=== PATIENT | female | born 1970 | race Two or more races ===

== ENCOUNTER 2019-12-04 15:24 | Inpatient (IN) | payer OTHER ==
[~2019-12-04] VITALS: Ht 160 cm; Wt 100.8 kg
[2019-12-04] MEDS ORDERED: MORPHINE SULFATE 4 MG/ML SYR/VIAL IV ONE (15:45)
[2019-12-04] MEDS ORDERED: ONDANSETRON HCL 4 MG/2 ML VIAL IV ONE (15:45)
[2019-12-04 15:57] LABS: Basophils # (auto) 0 10 ^3/uL (0-0.2); Eosinophils # (auto) 0.2 10 ^3/uL (0-0.8); Lymphocytes # (auto) 2.6 10 ^3/uL (0.4-5.4)
[2019-12-04 15:59] LABS: Basophils % (auto) 0.7 % (0.0-2.0); Eosinophils % (auto) 3.9 % (0.0-7.0); Hematocrit 44.1 % (36.0-46.0); Hemoglobin 14.3 g/dL (12.2-16.2); Lymphocytes % (auto) 40.7 % (10.0-50.0); Mean Corpuscular Hemoglobin 25.5 pg (28.0-32.0); Mean Corpuscular Hgb Conc. 32.4 g/dL (32.0-36.0); Mean Corpuscular Volume 78.8 fL (80.0-100.0); Monocytes # (auto) 0.4 10 ^3/uL (0-1.3); Monocytes % (auto) 6.8 % (0.0-12.0); Neutrophils % (auto) 47.9 % (37.0-80.0); Nucleated Red Blood Cells % 0.1 %; Platelet Count (auto) 119 10^3/uL (140-450); Red Cell Distribution Width 16.5 % (11.8-14.3); White Blood Cell 6.3 10^3/uL (4.4-10.8)
[2019-12-04 16:14] LABS: Albumin 3.7 g/dL (3.4-5.0); Calcium 8.9 mg/dL (8.5-10.1); Potassium 3.9 mmol/L (3.5-5.1)
[2019-12-04 16:18] LABS: BUN/Creatinine Ratio 15.1; Bilirubin, Total 0.4 mg/dL (0.2-1.0); Total Protein 8.3 g/dL (6.4-8.2)
[2019-12-04 16:24] LABS: INR 1.07 (0.9-1.15); Partial Thromboplastin Time 28.2 sec (23.64-32.05)
[2019-12-04 16:31] LABS: Urine WBC None Seen /hpf (0 - 5)
[2019-12-04 16:48] LABS: Urine Bacteria NONE SEEN /hpf (None Seen); Urine Blood Negative /uL (Negative); Urine Specific Gravity 1.002 (1.001-1.035)
[2019-12-04] MEDS: D5W/SOD CHL 0.45% 1,000 ML IV SCH (18:40)
--- NOTE | 2019-12-04 19:37 | NUR ---
MS admit from ER MAGDA DYER admitted to tele/MS . Patient is A&O X's 4 with no s/s of distress noted and patient c/o abdominal pain. Educated patient on pain medication/POC and to use call light when in need of assistance. Patient oriented to KAN MAK RN primary RN, unit, room, bed, and unit policies regarding patient care. All questions and concerns addressed, patient verbalized understanding. Guard present at bedside.
[2019-12-04 21:36] VITALS: BP 156/62
--- NOTE | 2019-12-04 21:53 | NUR ---
ROUNDS Patient is resting in bed at this time with no s/s of distress or discomfort. Guard present at bedside. Will continue care.
[2019-12-04 22:15] VITALS: BP 156/62
--- NOTE | 2019-12-05 | NUR ---
IV INSERTION IV access obtained, via clean sterile technique by inserting 22 gauge catheter at LEFT HAND.IV secured properly. No trauma to site. Patient tolerated well.
[2019-12-05] MEDS: MORPHINE SULFATE 4 MG/ML SYR/VIAL IV PRN ×4 (00:26→18:48)
[2019-12-05] MEDS: ONDANSETRON HCL 4 MG/2 ML VIAL IV PRN ×4 (00:26→18:48)
--- NOTE | 2019-12-05 01:00 | NUR ---
PAIN REASSESSMENT Patient states pain is still at a 7 right now but it is tolerable and pain increases with movement. Patient states no nausea at this time. Will continue care.
[2019-12-05] MEDS: D5W/SOD CHL 0.45% 1,000 ML IV SCH ×2 (05:05→09:18)
--- NOTE | 2019-12-05 05:12 | NUR ---
pain assessment Patient stating that she has abdominal pain rated at a 9. Patient states that she does not want any medication at this time, that she is going to try to hold off on it. Educated patient to use call light if she changes her mind. Patient verbalized understanding.
[2019-12-05 05:13] VITALS: BP 128/71
[2019-12-05 06:48] LABS: Basophils # (auto) 0 10 ^3/uL (0-0.2); Eosinophils # (auto) 0.2 10 ^3/uL (0-0.8); Lymphocytes % (auto) 42.9 % (10.0-50.0); Red Cell Distribution Width 15.8 % (11.8-14.3)
[2019-12-05 06:51] LABS: Basophils % (auto) 0.3 % (0.0-2.0); Eosinophils % (auto) 3.5 % (0.0-7.0); Hematocrit 41.8 % (36.0-46.0); Hemoglobin 13.7 g/dL (12.2-16.2); Lymphocytes # (auto) 2.8 10 ^3/uL (0.4-5.4); Mean Corpuscular Hemoglobin 25.7 pg (28.0-32.0); Mean Corpuscular Hgb Conc. 32.8 g/dL (32.0-36.0); Mean Corpuscular Volume 78.3 fL (80.0-100.0); Monocytes # (auto) 0.4 10 ^3/uL (0-1.3); Monocytes % (auto) 6.4 % (0.0-12.0); Neutrophils % (auto) 46.9 % (37.0-80.0); Nucleated Red Blood Cells % 0.3 %; Platelet Count (auto) 103 10^3/uL (140-450); Red Blood Cells 5.34 10^6/uL (4.0-5.20); White Blood Cell 6.5 10^3/uL (4.4-10.8)
--- NOTE | 2019-12-05 07:00 | NUR ---
Opening Shift Note Assumed care of patient, awake and alert. No S/S of distress/SOB. Patient complaining of RUQ pain. Instructed on POC and to call for assist PRN, will continue to monitor for changes Q1hr and PRN.
[2019-12-05 07:05] LABS: Albumin 3.3 g/dL (3.4-5.0); Calcium 8.3 mg/dL (8.5-10.1); Potassium 3.6 mmol/L (3.5-5.1)
[2019-12-05 07:08] LABS: BUN/Creatinine Ratio 16.2; Bilirubin, Total 0.7 mg/dL (0.2-1.0); Total Protein 7.6 g/dL (6.4-8.2)
[2019-12-05 09:00] VITALS: BP 149/85
[2019-12-05] MEDS: ENOXAPARIN SOD 40 MG/0.4 ML SYRINGE SC SCH (09:40)
[2019-12-05 12:40] VITALS: BP 145/75
[2019-12-05 17:00] VITALS: BP 130/60
--- NOTE | 2019-12-05 18:44 | NUR ---
IV removal IV DC'd with clean sterile technique, catheter fully intact. Pressure dressing applied to site. Patient tolerated well. NOTE:
--- NOTE | 2019-12-05 19:10 | NUR ---
Received report from the Day Shift RN Hazel Clark". Pt. resting and dozing in bed. Half awake and half asleep, easily arousable to name.
--- NOTE | 2019-12-05 20:00 | NUR ---
Pt. in bed resting, an inmate, alert, awake, oriented x 4. Pt. in Room Air, lungs are clear bilaterally. No s/s of sob or dyspnea. Breathing regular, even and unlabored. Pt. is medical-surgical pt. Pt. none Tele. Pt. denies pain @ this time. Pt. independent with ADL's and can follow commands. Ambulatory with [facility]. Voided clear yellow urine. Last BM today 12/05/19. Generally skin intact. Pt. is in bed resting and watching TV. Officer @ the bedside guarding the pt. Call-light within pt.'s reach.
[2019-12-05] MEDS: PANTOPRAZOLE 40 MG/10 ML VIAL INJ IV SCH (21:35)
--- NOTE | 2019-12-05 21:35 | NUR ---
Meds. as scheduled given/administered. Pt. provided explanation about the use and benefits of the scheduled IV Protonix. Pt. verbalized understanding.
[2019-12-05 21:44] VITALS: BP 124/75
--- NOTE | 2019-12-05 22:02 | NUR ---
Pt. Accucheck taken @ hs and result of BS = 130.
--- NOTE | 2019-12-05 23:30 | NUR ---
Pt. resting and sleeping. No s/s of sob. Breathing even and unlabored. Siderails up x2 @ the HOB and bed locked in lowest position. Keep room free from noise and dim-lighted. Officer @ the bedside. Door's closed.
[2019-12-06] MEDS: ONDANSETRON HCL 4 MG/2 ML VIAL IV PRN ×3 (01:31→21:05)
--- NOTE | 2019-12-06 01:31 | NUR ---
Zofran - Ondansetron 4mg.= 2 mls. IV given for pt. verbalized feeling of nausea @ this time.
[2019-12-06] MEDS: MORPHINE SULFATE 4 MG/ML SYR/VIAL IV PRN ×4 (01:33→21:05)
--- NOTE | 2019-12-06 01:33 | NUR ---
Pt. given Morphine Sulfate 4 mg. IV for severe pain 8/10 scale @ the Right Upper Quadrant pain (RUQ) sharp, hurting and stabbing as described by the pt. BP= 125/69 , HR = 68/min.
--- NOTE | 2019-12-06 02:03 | NUR ---
No s/s of pain or discomfort. No s/s of facial grimacing. No /s of anxiety and agitation. Pt. calm and looks comfortable. Pt. sleeping now. Kept warm and maintained pt. safety. Officer @ the bedside.
--- NOTE | 2019-12-06 04:00 | NUR ---
Pt.'s sleeping well. Siderails up x2, bed locked in a low position and call-light @ the bedside.
[2019-12-06 05:31] VITALS: BP 110/69
[2019-12-06 05:33] VITALS: BP 110/69
--- NOTE | 2019-12-06 07:40 | NUR ---
Patient sitting up in bed, eating breakfast. No acute distress noted. Female security at bedside.
--- NOTE | 2019-12-06 07:45 | NUR ---
Patient stated she's nauseous, her stomach pain level at 9/10 at this time. Zofran Inj given for nausea, Morphine Sulf Inj given for pain.
[2019-12-06 09:00] VITALS: BP 149/77
[2019-12-06] MEDS: ENOXAPARIN SOD 40 MG/0.4 ML SYRINGE SC SCH ×2 (09:18→12:22)
--- NOTE | 2019-12-06 09:20 | NUR ---
Platelet = 103 Nathaniel FLORES Will inform the MD.
[2019-12-06] MEDS: LISINOPRIL 5 MG TAB PO SCH (09:21)
[2019-12-06] MEDS: PANTOPRAZOLE 40 MG/10 ML VIAL INJ IV SCH ×2 (09:21→21:05)
--- NOTE | 2019-12-06 10:05 | NUR ---
Radiology called to keep patient NPO after midnight.
--- NOTE | 2019-12-06 12:18 | NUR ---
Dr. Marcus came over. made aware of low Platelet count, if he wants to continue with Lovenox order; patient is scheduled for UGI Regular Barium tomorrow, Tuesday as per Radiology. Dr. Marcus ordered to give the Lovenox SC.
[2019-12-06 13:00] VITALS: BP 131/69
--- NOTE | 2019-12-06 13:15 | NUR ---
Patient stated her stomach pain level at 8/10 at this time. Morphine Sulf Inj given for pain. Patient denies nausea at this time.
[2019-12-06 17:00] VITALS: BP 128/71
--- NOTE | 2019-12-06 19:40 | NUR ---
Opening Shift Note Assumed care of patient, awake and alert. No S/S of distress/SOB. Female guard at bedside. Complained of abdominal pain. Instructed on POC and to be NPO after MN. For UGI Barium tomorrow. Instructed to call for assist PRN, patient verbalized understanding, call light within reach, will continue to monitor for changes Q1hr and PRN.
[2019-12-06 21:51] VITALS: BP 136/61
[2019-12-07 05:27] VITALS: BP 117/63
--- NOTE | 2019-12-07 07:30 | NUR ---
OPENING NOTE ASSUMED CARE OF PT. ALERT AND ORIENTED. NO S/S OF SOB/DISTRESS NOTED. SAFETY PRECAUTION IN PLACE. BED SET TO LOWEST POSITION/LOCKED. BEDSIDE RAILS UP X2. CALL LIGHT WITH REACH. INSTRUCTED PT TO CALL FOR ASSISTANCE. UPDATED ON POC. PT VERBALIZED UNDERSTANDING. WILL CONTINUE TO MONITOR.
[2019-12-07 09:00] VITALS: BP 118/67
[2019-12-07] MEDS: PANTOPRAZOLE 40 MG/10 ML VIAL INJ IV SCH ×2 (09:06→22:27)
[2019-12-07] MEDS: LISINOPRIL 5 MG TAB PO SCH (09:06)
[2019-12-07] MEDS: ENOXAPARIN SOD 40 MG/0.4 ML SYRINGE SC SCH (09:13)
[2019-12-07] MEDS: MORPHINE SULFATE 4 MG/ML SYR/VIAL IV PRN ×3 (09:19→22:31)
[2019-12-07] MEDS ORDERED: GASTROGRAFIN 120 ML SOL ONE (11:17)
[2019-12-07] MEDS ORDERED: EZ-GAS II GRANULES (RADIOLOGY USE) PO ONE (11:17)
[2019-12-07] MEDS ORDERED: EZ PAQUE SUSP 12OZ BTL ONE (11:17)
[2019-12-07 13:00] VITALS: BP 131/68
[2019-12-07 16:31] VITALS: BP 134/67
[2019-12-07 22:00] VITALS: BP 108/49
[2019-12-08 05:00] VITALS: BP 106/61
[2019-12-08] MEDS: MORPHINE SULFATE 4 MG/ML SYR/VIAL IV PRN ×4 (06:56→22:45)
[2019-12-08 08:32] VITALS: BP 135/72
[2019-12-08] MEDS: LISINOPRIL 5 MG TAB PO SCH (09:37)
[2019-12-08] MEDS: PANTOPRAZOLE 40 MG/10 ML VIAL INJ IV SCH ×2 (09:37→22:39)
[2019-12-08] MEDS: ENOXAPARIN SOD 40 MG/0.4 ML SYRINGE SC SCH (09:38)
[2019-12-08 13:08] VITALS: BP 119/77
[2019-12-08 17:42] VITALS: BP 119/54
--- NOTE | 2019-12-08 19:35 | NUR ---
Opening Shift Note Assumed care of patient, awake and alert. No S/S of distress/SOB or pain. Instructed on POC and to call for assist PRN, will continue to monitor for changes Q1hr and PRN.
[2019-12-08] MEDS ORDERED: DONNATAL 5ml ORAL Elix (BELLADONNA ALK-PHENOBARB) PO PRN (19:45)
[2019-12-08 22:00] VITALS: BP 139/65
[2019-12-08] MEDS: MUPIROCIN 2% OINT 15gm or 22gm EACHNOSTRI SCH (22:39)
[2019-12-08 23:26] VITALS: BP 139/65
[2019-12-09 05:00] VITALS: BP 108/62
[2019-12-09] MEDS: MORPHINE SULFATE 4 MG/ML SYR/VIAL IV PRN ×4 (06:07→22:39)
[2019-12-09 09:00] VITALS: BP 140/71
[2019-12-09] MEDS: PANTOPRAZOLE 40 MG/10 ML VIAL INJ IV SCH ×2 (10:20→21:08)
[2019-12-09] MEDS: ENOXAPARIN SOD 40 MG/0.4 ML SYRINGE SC SCH (10:20)
[2019-12-09] MEDS: MUPIROCIN 2% OINT 15gm or 22gm EACHNOSTRI SCH ×2 (10:20→21:09)
[2019-12-09] MEDS: LISINOPRIL 5 MG TAB PO SCH (10:37)
[2019-12-09 13:00] VITALS: BP 160/86
[2019-12-09 13:20] VITALS: BP 119/61
[2019-12-09 16:51] VITALS: BP 128/79
--- NOTE | 2019-12-09 19:00 | NUR ---
OPENING NOTE Received report from day shift RN. Patient is A&O X's 4 with no s/s of distress and reports some minimal abdominal pain that is precipitated with movement. Patient reports not needing any pain medication at this time. Educated patient on POC and to use call light when in need of assistance. Patient verbalized understanding. Bed is in lowest/locked position with side rails up X's 2 and call light is within reach of patient. Will continue care.
[2019-12-09 22:00] VITALS: BP 114/63
--- NOTE | 2019-12-09 23:09 | NUR ---
pain reassessment PATIENT REPORTS PAIN HAS DECREASED AND IS TOLERABLE. PATIENT REPORTS THAT PAIN WORSENS WITH MOVEMENT. WILL CONTINUE CARE
[2019-12-10 05:00] VITALS: BP 117/62
[2019-12-10] MEDS: MORPHINE SULFATE 4 MG/ML SYR/VIAL IV PRN ×2 (05:08→10:29)
--- NOTE | 2019-12-10 05:45 | NUR ---
PAIN REASSESSMENT Patient is resting in bed with eyes closed and no s/s of discomfort. Will continue care.
--- NOTE | 2019-12-10 07:07 | NUR ---
OPENING SHIFT NOTE Assumed care of patient from shift superintendent caustic cresylate RN. Patient is alert and oriented x4, no signs of distress noted. Patient was updated on the plan of care and verbalized understanding. Bed is locked, in the lowest position, side rails up x2 and call light is in reach. Patient was encouraged to call for assistance as needed.
[2019-12-10 09:00] VITALS: BP 119/68
[2019-12-10] MEDS: LISINOPRIL 5 MG TAB PO SCH (10:28)
[2019-12-10] MEDS: PANTOPRAZOLE 40 MG/10 ML VIAL INJ IV SCH (10:28)
[2019-12-10] MEDS: ENOXAPARIN SOD 40 MG/0.4 ML SYRINGE SC SCH (10:29)
[2019-12-10] MEDS: MUPIROCIN 2% OINT 15gm or 22gm EACHNOSTRI SCH (10:31)
[2019-12-10] MEDS ORDERED: MUPI2OIN2 EACHNOSTRI (12:02)
[2019-12-10] MEDS ORDERED: LISI-275 PO (12:02)
[2019-12-10 12:56] VITALS: BP 116/55
--- NOTE | 2019-12-10 14:14 | NUR ---
DISCHARGE Discharge instructions given as ordered. Encourage to follow up with PMD as instructed. All questions and concerns addressed. Patient verbalized understanding. Medication reconciliation form completed and copy given to patient. Home medications held in Pharmacy returned to patient, and needed vaccines given. IV removed with catheter intact, pressure dressing applied, moreno catheter removed. Telemetry unit returned to ICU. Patient taken to vehicle via wheelchair with all personal belongings, accompanied by staff and family member. No distress noted at time of departure. Addendum: 12/10/19 at 1417 by JEEVAN ESCAMILLA RN PATIENT DOD NOT HAVE MORENO, TELE, HOME MEDICATIONS IN PHARMACY, OR WANT VACCINATIONS.
== END 2019-12-10 14:14 | DRG 394 ==
LOC: ER 15:24 → EEVIPCON 15:24 → WEST WING 15:25
PROVIDERS: ADMIT Internal Medicine; ATTEND Internal Medicine
DX: K66.0 Peritoneal adhesions (postprocedural) (postinfection) (principal); K76.6 Portal hypertension; R10.11 Right upper quadrant pain; K75.81 Nonalcoholic steatohepatitis (NASH); E11.9 Type 2 diabetes mellitus without complications; I10 Essential (primary) hypertension; J45.909 Unspecified asthma, uncomplicated; K72.10 Chronic hepatic failure without coma; Z82.49 Family history of ischemic heart disease and other diseases of the circulatory system; Z83.3 Family history of diabetes mellitus; Z87.891 Personal history of nicotine dependence; Z90.49 Acquired absence of other specified parts of digestive tract; Z22.322 Carrier or suspected carrier of Methicillin resistant Staphylococcus aureus
CPT/HCPCS: 36415; 74176; 74245; 80053; 81001; 82962; 83690; 84702; 85025; 85610; 85730; 87081; 96361; 96374; 96375; C9113; G0378; J2405